=== PATIENT | male | born 1955 | race Caucasian/White ===

== ENCOUNTER 2016-09-30 13:59 | Inpatient (IN) ==
[2016-09-30] MEDS ORDERED: SODIUM CHLORIDE 0.9% INJ ONE (14:31)
[2016-09-30] MEDS ORDERED: PROTONIX IV ONE (14:31)
[2016-09-30 14:48] LABS: MANUAL DIFF NEEDED? NO
[2016-09-30 14:51] LABS: BASO% 0.1 % (0.0-0.8); EOS# 0.28 X1000 (0.0-0.7); EOS% 3.3 % (0.0-10.0); HEMATOCRIT 27.7 % (42.0-52.0); IMM GRAN# 0.03 X1000 (0.0-0.04); IMM GRAN% 0.4 % (0.0-0.5); LYMPH# 1.92 X1000 (1.2-3.4); LYMPH% 22.4 % (20.5-51.1); MCH 33.3 PG (27-31); MCHC 36.1 g/dL (33-37); MCV 92.3 FL (81-99); MONO# 0.81 X1000 (0.11-0.59); MONO% 9.5 % (1.7-9.3); MPV 12.8 FL (7.4-10.4); NEUT% 64.3 % (42.2-75.2); PLT 145 X1000 (130-400)
[2016-09-30 15:04] LABS: PTT 39.4 Seconds (22.0-36.0)
[2016-09-30 15:06] LABS: INR 2.5; PROTIME 27.8 Seconds (9.2-11.7)
[2016-09-30 15:15] LABS: AGAP 16; ALBUMIN 3.6 g/dL (3.5-5.0); ALKALINE PHOSPHATASE 44 U/L (32-122); BUN 27 mg/dL (8-22); CALCIUM 8.5 mg/dL (8.8-10.2); CHLORIDE 106 mmol/L (98-107); COSMO 287; GOT 56 U/L (10-34); POTASSIUM 4.1 mmol/L (3.5-5.1); SODIUM 141 mmol/L (136-145); TCO2 19 mmol/L (25-35); TOTAL BILIRUBIN 0.35 mg/dL (0.20-1.00)
[2016-09-30 15:24] LABS: GPT 61 U/L (10-44)
--- NOTE | 2016-09-30 15:49 | PROVIDER DOCUMENTATION ---
This chart was entered by Keysha Kenny Scribe, acting as scribe for Owen Amaya MD. HPI-Abdominal Pain/GI Problem - General Chief Complaint: GI Bleed Stated Complaint: ABD PAIN Time Seen by Provider: 09/30/16 14:15 Source: patient Allergies/Adverse Reactions: Patient Allergies Allergy/AdvReac Type Severity Reaction Status Date / Time No Known Allergies Allergy Verified 09/30/16 14:43 Home Medications: Home Medication List Medication Instructions Recorded Confirmed Last Taken Type Warfarin [Coumadin] 7.5 mg PO QHS 06/02/14 09/30/16 1 Day Ago History Carvedilol [Coreg] 6.25 mg PO BID 05/20/15 09/30/16 09/30/16 History Losartan [Cozaar] 100 mg PO DAILY 05/20/15 09/30/16 09/30/16 History Omeprazole [Prilosec] 40 mg PO DAILY PRN PRN 05/20/15 09/30/16 3 Days Ago History - History of Present Illness-ABD Nature of Presenting Problems: Pt is a 61 yom who came to the ED with a cc of black stool. Denies ирина blood nor n/v. Some RUQ abd pain. H/o gastritis and remote h/o EtOH abuse. Seen by Dr Epstein in the past. Abdominal Pain Onset Location: reports: RUQ Pain Radiation: reports: RLQ Quality of Pain: reports: aching Severity in ED: reports: mild Onset/Duration: reports: just prior to arrival Timing: reports: still present Last BM: this morning Dark Stools Present?: reports: black, tarry Bruising or Bleeding Gums?: No Similar Symptoms Previously?: No Recently seen or treated by another doctor?: No Review of Systems - Adult - REVIEW OF SYSTEMS - ADULT Constitutional: denies: chills, fever Eyes: reports: no symptoms reported Ears, Nose, Mouth & Throat: denies: epistaxis, mouth/dental pain Cardiovascular: reports: no symptoms reported Respiratory: denies: cough, shortness of breath Gastrointestinal: reports: abdominal pain, rectal bleeding (melena). denies: hematemesis, diarrhea, nausea, vomiting Genitourinary: denies: flank pain, hematuria Musculoskeletal: reports: no symptoms reported Integumentary: reports: no symptoms reported Neurological: reports: no symptoms reported Psychiatric: reports: no symptoms reported Endocrine: reports: no symptoms reported Hematologic/Lymphatic: reports: no symptoms reported Allergic/Immunologic: reports: no symptoms reported All Other Systems: Reviewed and Negative Past History - Adult - PAST MEDICAL HISTORY-ADULT Review of Records: reports: Nursing Assessment Review, Medications Reviewed Cardiovascular: reports: aortic disease (thoracic aneurysm repair), CAD, heart valve problem (aortic valve replacement) Gastrointestinal: reports: other (hiatal hernia) Neurological: reports: CVA Endocrine/Immune: reports: other (metabolic syndrome) - SOCIAL HISTORY Smoking: less than 1 pack/day Provider spent 3-5 mins advising pt. on dangers of tobacco.: Discussed manners to quit use, and f/u contacts for add'l counseling. Physical Exam-General - PHYSICAL EXAM-ADULT Initial Vital Signs Reviewed: Yes - CONSTITUTIONAL General Appearance: appears well, alert, no apparent distress - EYES Eyes: PERRL/EOMI, pink conjunctivae, fundi clear, no AV nicking - HEAD, EARS, NOSE, MOUTH & THROAT HENMT: normocephalic/atraumatic, moist mucous membranes, normal ENT inspection - NECK Neck: non-tender, full range of motion, supple - RESPIRATORY Respiratory: chest non-tender, lungs clear, normal breath sounds - CARDIOVASCULAR Cardiovascular: regular rate, rhythm, no edema, diastolic murmur, systolic murmur - GASTROINTESTINAL (ABDOMEN) Abdominal Exam: normal bowel sounds, non tender, soft, no organomegaly, no pulsatile mass. negative: guarding, rigid - LYMPHATIC Lymphatic: no adenopathy. negative: enlargement - MUSCULOSKELETAL Back Exam: normal inspection, no CVA tenderness, no vertebral tenderness Extremity: normal range of motion, non-tender - SKIN Integumentary: normal color, normal turgor, warm/dry - NEUROLOGIC Neurologic: grossly normal - PSYCHIATRIC Psych/Mental Status: normal mood/affect, oriented x 3 Progress - PLAN OF CARE/RESULTS Progress/Plan/Lab Results: Vital Signs - 8 hr 09/30/16 14:07 Temperature 97.9 F Pulse Rate 75 Respiratory Rate 18 Blood Pressure 101/53 O2 Sat by Pulse Oximetry 100 Result Diagrams: 09/30/16 14:30 09/30/16 14:30 - CONSULTS/PCP/HOSPITALIST Notification #1 *Consult/PCP/Hospitalist*: Gomez Time Discussed: 15:29 Consult Disposition: Admit #2 Consult: Lamar Departure - Departure Time of Disposition Decision: 13:30 DIAGNOSIS: Upper gastrointestinal bleed Disposition: ADMITTED INPATIENT 09 Certified Medical Emergency: Emergent Condition: Stable Referrals and Follow-Ups: Jose Sanchez MD [Primary Care Provider] - - Critical Care Note Total Time (mins): 30 Critical Care Statement: This patient required my direct personal management to treat or rule out processes, the absence of which, could potentiallly result in sudden, clinically significant life or limb threatening deterioration. This chart was documented by the indicated scribe, (Keysha Kenny Scribe) and accurately reflects the services I performed and decisions made by me, Owen Amaya MD, as attested by the provider's signature.
[2016-09-30] MEDS ORDERED: VITAMIN K 10 MG in NS 50 ML IV ONE (16:38)
[2016-09-30] MEDS ORDERED: PROTONIX 80 MG in NS 80 ML IV SCH (16:44)
[2016-09-30] MEDS ORDERED: NS 1,000 ML IV ONE (16:44)
[2016-09-30] MEDS ORDERED: ZOFRAN IV PRN (16:54)
--- NOTE | 2016-09-30 17:21 | HISTORY AND PHYSICAL ---
ADMITTING PHYSICIAN: Dr. Sanchez. CHIEF COMPLAINT: Black tarry stools. PRESENT ILLNESS: The patient is a 61-year-old white male who is on Coumadin for an aortic valve replacement in 1998. He also had aortic dissection that was repaired in 2013. He has had melenic stools in the past at least 1 time from a GI bleed. The patient has also had a stroke in the past when his blood got too thick by his quote and it caused some hot feeling to the left side of his body but apparently he had no paralysis from this. He has noticed the melenic stool for about 3 days but says that his significant other has breast cancer and she was sick and he felt like he had to stay with her and she got better today and he decided to come to the hospital. He said the last time this occurred he actually waited 6 days and he had to have a 6 pints of blood. He is supposed to be taking Prilosec daily but he says he takes a 2 or 3 times a week and he knows he should be taking it more regularly. He also smokes though he has been cutting down. He had been smoking a pack of cigarettes a day until the last week or so and he is down to 5 or 6 cigarettes a day. I sat and talked with him about cigarette cessation and the importance of getting off of tobacco for multiple reasons but it also helps him make more acid through stimulation from the tobacco. 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 This is Saturday and we have found that Dr. Luevano is covering here in the hospital this weekend. ALLERGIES: The patient has no known drug allergies. PAST SURGICAL HISTORY: He has had only the aortic aneurysm repair and valve replacement as surgeries . SOCIAL HISTORY: He gave up using alcohol about 8 years ago. He has no children. REVIEW OF SYSTEMS: Neurological: Denies headaches, seizures, visual problems, hearing problems. Pulmonary: Denies cough, wheezing, dyspnea. Cardiovascular: Denies heart palpitations, PND, orthopnea, chest pain. He says he takes a medication for his heart palpitations. GI: Denies nausea, vomiting. Did have a have a little right midabdominal pain earlier but he says it does not hurt now, has not noticed melenic stools. : No difficulty with urination. Endocrine: No diabetes, thyroid disease or pituitary disease. OBJECTIVE: Vital signs: Temperature is 97.9 degrees Fahrenheit, pulse rate 75, respirations 18, blood pressure 101/53, O2 saturation is 100%. I had a. HEENT: Normocephalic. EOMs intact. PERRLA. Throat clear. Neck: Supple without thyromegaly, lymphadenopathy, or carotid bruits. Lungs: Are clear auscultation and percussion without rhonchi, rales, or wheezes. Heart: Regular rate and rhythm without murmurs, gallops, or friction rubs. I can't hear his mechanical aortic valve. Abdomen: Soft. Active bowel sounds. No organomegaly or tenderness. Neurologic: Cranial nerves 2-12 intact grossly. Sensory, motor intact. Reflexes 1+ all. Lymphatic: Lymph nodes are nonpalpable in the cervical, supraclavicular, axillary and inguinal areas. General: He is an overweight 61-year-old white male in no apparent distress at this time. LABORATORY: Hemoglobin is 10.0, hematocrit 27.7, white count is 8560. Pro time is 27.8, INR is 2.5, PTT is 39.4. Sodium 141, potassium 4.1. AST slightly elevated at 56, ALT slightly elevated at 61. Rest of chemistries are essentially normal. ADMITTING DIAGNOSES: 1. Gastrointestinal bleed. 2. On Coumadin. 3. Aortic valve replacement mechanical. 4. History of aortic aneurysm with repair. This apparently was an ascending aortic aneurysm. Also has had hypertension and he thinks he is on losartan and on Coreg but he could not tell me for sure the dosages and will try to find those out. PLAN: Will admit to the ICU. Have consulted GI . Please see orders. cc: MD Jose Molina Jr, MD
[2016-09-30] MEDS: PROTONIX 80 MG in NS 80 ML IV SCH (18:12)
[2016-09-30] MEDS: NS 1,000 ML IV SCH (18:12)
[2016-09-30] MEDS: CARAFATE LIQUID PO SCH ×3 (18:13→21:47)
--- NOTE | 2016-09-30 18:29 | CONSULTATION ---
DATE OF CONSULTATION: 09/30/2016 REQUESTING PHYSICIAN: Jose Sanchez MD PRIMARY DOCTOR: Jose Sanchez MD REASON FOR CONSULTATION: Melena. HIS ILLNESS: Mr. Miller is a 61-year-old male, who was admitted through the ER today for melena. According the patient, he had headaches for the last 3 weeks and had been using BC powders every other day for 2 weeks. He stopped 1 week ago. After using BC powders, he has complained of epigastric pain and burning. He has not been compliant with his Prilosec. He only takes it as needed and he almost takes is like sometimes once every week or less than that. He had a bleeding ulcer in 2011 which was cauterized. He has been on Coumadin for history of aortic valve replacement in 2001. His INR was 2.5 on admission. The patient has been noticing melena for the last 3 days. His admission hemoglobin and hematocrit today was 10 and 27.7. He denies any vomiting blood. He does complain of discomfort in epigastric region. PAST MEDICAL HISTORY: 1. Aortic stenosis, required aortic valve replacement St. Jae in 2001, on chronic Coumadin. 2. History of gastric ulcer in the past. 3. Chronic smoker, noncompliant. 4. Reflux disease. 5. Hypertension. 6. Pneumonia. 7. Hyperlipidemia. 8. Ascending Aortic Dissection in s/p repair at [facility]. PAST SURGICAL HISTORY: Aortic valve replacement St. Jae in 2001. EGD 2011. Aortic Dissection repair at [facility] in SOCIAL HISTORY: He is on disability and is unemployed. He smokes half pack a day for many years. He quit alcohol about 30 years ago. He denies any illicit drugs. FAMILY HISTORY: Father had a heart attack and mother of pneumonia. REVIEW OF SYSTEMS: Denies any current fevers, rigors, chills, chest pain, shortness of breath, dyspnea at rest. Denies any genitourinary complaints or neurologic complaints. Denies history on nausea, vomiting or vomiting blood. Does complain of mild epigastric discomfort and burning type and does complain of melena for the last 3 days. ALLERGIES: No known drug allergies. MEDICATIONS AT HOME: Coumadin 7.5 mg p.o. at bedtime. Losartan 100 mg once daily. Omeprazole 40 mg as needed. Coreg 6.25 mg p.o. b.i.d. BC powders as needed. MEDICATIONS IN THE HOSPITAL: Protonix drip. Carafate 1 g every 6 hours. He is on clear liquid diet and on vitamin K 10 mg IV once and fluids at 100 mL/hour. PHYSICAL EXAMINATION: Vital Signs: Temperature 98 degrees, pulse rate 64, respiratory rate 16, blood pressure of 95/52, saturating 97% on room air. Body weight of 185 pounds , BMI of 31.8 kg. General Appearance: Moderately built, moderately nourished, lying in bed, in no acute distress. HEENT: Pale conjunctivae, no icterus. Pupils equal, react to light. Neck: Supple. Chest: Decreased. Cardiovascular: Regular rhythm. No murmur. Abdomen: Mild discomfort in epigastric region. No rebound, no guarding. Bowel sounds are present. No hepatosplenomegaly. Extremities: No cyanosis, clubbing or edema. Neurologic: Alert, awake, oriented. LABORATORY: Hemoglobin and hematocrit 10 and 27.7, white count 8.5, platelet count of 144,000, MCV 92.3. INR of 2.5, PT of 27.8, PTT of 39.4, sodium 141, potassium 4.1, chloride 106, bicarb 19, anion gap of 16, BUN of 27, creatinine 0.9, glucose of 111, calcium 8.5, total bilirubin is 0.35, AST 56, ALT 61, alkaline phosphatase 44, total protein 6, albumin of 3.6. IMPRESSION AND PLAN: 1. Melena and history of use of BC powders for headaches. Quit 1 week ago. 2. History of noncompliance. Not taking his proton pump inhibitors at home. 3. History of reflux disease. 4. History of gastric ulcer, last one in 2011 which was cauterized. 5. History of aortic valve replacement 2001 for aortic stenosis, on chronic Coumadin. 6. History of aortic dissection involving the ascending thoracic aorta and aortic arch. 7. Chronic smoker. 8. Elevated liver enzymes. 9. Mild obesity, body mass index 31.8. RECOMMENDATIONS: 1. Continue to be nothing per oral. We will check serial hemoglobin and hematocrit every 4-6 hours and type and cross, transfuse to keep hematocrit within 27%. We will reverse international normalized ratio with vitamin K we will keep him on Protonix drip and Carafate. We will check PT PTT, INR in the morning. We will schedule esophagogastroduodenoscopy in the morning if international normalized ratio is less than 1.5. May give FFPs if needed. Will consult Cardiology to help with Coumadin management because of complicated cardiac history. 2. We will check acute hepatitis panel and ultrasound of the abdomen. 3. The patient was counseled to avoid use of nonsteroidal antiinflammatory drugs completely. Patient was also counseled to quit smoking completely. The patient was counseled to improve the compliance with his medications. Patient failed to follow up with us as an outpatient after prior endoscopy 5 years ago. I discussed the risks benefits indications and alternatives for esophagogastroduodenoscopy with the patient and he acknowledges and agrees to proceed with the procedure. 4. The above plan of care discussed with the patient and all questions answered. cc: MD Jose Chopra MD MTDD
[2016-10-01] MEDS: NS 1,000 ML IV SCH ×3 (04:20→22:02)
[2016-10-01] MEDS: CARAFATE LIQUID PO SCH ×4 (04:20→22:00)
[2016-10-01] MEDS: PROTONIX 80 MG in NS 80 ML IV SCH ×3 (04:20→22:01)
[2016-10-01 04:55] LABS: MANUAL DIFF NEEDED? NO
[2016-10-01 05:01] LABS: BASO% 0.1 % (0.0-0.8); EOS# 0.24 X1000 (0.0-0.7); EOS% 3.4 % (0.0-10.0); HEMATOCRIT 26.8 % (42.0-52.0); HEMOGLOBIN 9.4 g/dL (14.0-18.0); IMM GRAN# 0.05 X1000 (0.0-0.04); IMM GRAN% 0.7 % (0.0-0.5); LYMPH% 26.6 % (20.5-51.1); MCH 32.9 PG (27-31); MCHC 35.1 g/dL (33-37); MCV 93.7 FL (81-99); MONO# 0.67 X1000 (0.11-0.59); MONO% 9.4 % (1.7-9.3); MPV 12.3 FL (7.4-10.4); NEUT% 59.8 % (42.2-75.2); PLT 116 X1000 (130-400); RBC 2.86 XMIL (4.7-6.1)
[2016-10-01 05:04] LABS: PTT 30.2 Seconds (22.0-36.0)
[2016-10-01 05:06] LABS: INR 1.37; PROTIME 14.7 Seconds (9.2-11.7)
[2016-10-01 05:21] LABS: AGAP 12; ALBUMIN 3.3 g/dL (3.5-5.0); ALKALINE PHOSPHATASE 39 U/L (32-122); BUN 21 mg/dL (8-22); CALCIUM 8.1 mg/dL (8.8-10.2); CHLORIDE 110 mmol/L (98-107); COSMO 289; GOT 43 U/L (10-34); GPT 51 U/L (10-44); SODIUM 144 mmol/L (136-145); TCO2 22 mmol/L (25-35); TOTAL BILIRUBIN 0.61 mg/dL (0.20-1.00); TOTAL PROTEIN 5.5 g/dL (6.3-8.3)
--- NOTE | 2016-10-01 05:37 | EKG Report ---
Test Performed on : 09/30/2016 5:09:56 PM Test Reason : afib Blood Pressure : / mmHG Vent. Rate : 064 BPM Atrial Rate : 064 BPM P-R Int : 000 ms QRS Dur : 096 ms QT Int : 454 ms P-R-T Axes : 000 049 126 degrees QTc Int : 468 ms Sinus rhythm. with Mobitz I (Wenckebach) block Nonspecific T wave abnormality Prolonged QT Abnormal ECG When compared with ECG of 20-MAY-2015 19:36, T wave inversion no longer evident in Lateral leads Confirmed by Salbador SRINIVASAN, Marcelo Pitt ([id number]) on 10/01/2016 9:04:50 AM
--- NOTE | 2016-10-01 07:26 | PROGRESS NOTE ---
DATE: 10/01/2016 SUBJECTIVE: Mr. Miller is doing fair. The patient is admitted with melena, mild abdominal discomfort, no high-grade fever or chills. The patient had history of GI bleed in the past. He was taking BC powder for headache. No nausea, no hematemesis. No blood in the urine or hemoptysis. The patient does have prosthetic heart valve on Coumadin. His Coumadin is on hold. We requested cardiology consult to help us manage anticoagulation with prosthetic heart valve. He denied any headache. No typical chest pain or palpitations. PAST MEDICAL HISTORY: 1. Prosthetic heart valve. 2. Hypertension. 3. Gastritis. 4. Dissecting aortic aneurysm. 5. Situational depression. 6. Hyperlipidemia. PHYSICAL EXAMINATION: Vital: Admission history physical and GI consult reviewed. Vital signs noted. Neck: Supple. No JVD. Lungs: Bibasilar crepitations. Heart: Metallic heart sound, 2/6 systolic murmur at the apex. Abdomen: Soft, globular. Bowel sounds present. Extremities: No cyanosis, clubbing. No acute DVT. Central Nervous System: Alert, awake, able to move all 4 limbs. LAB DATA: Done this morning. Last blood work hemoglobin 9.4, hematocrit 26.8. Platelet count 116,000. PT/INR 1.37, electrolytes BUN was 21 creatinine 0.8. CONSIDERATION: 1. Gastrointestinal bleed most likely upper GI. Patient is scheduled to have upper GI endoscope today. 2. Prosthetic heart valve. 3. Hypertension. 4. Gastritis. 5. Reflux disease. 6. Hyperlipidemia. Encouraged patient to quit smoking. 7. Avoid anti inflammatory medication. We already requested cardiology consult. Continue rest of the treatment. After reviewing the results, will make necessary recommendations. cc: Jose Sanchez MD
[2016-10-01] MEDS: COZAAR PO SCH (10:16)
[2016-10-01] MEDS: COREG PO SCH ×2 (10:16→20:35)
[2016-10-01 10:25] LABS: HEPATITIS PROFILE ACUTE SEE COMMENTS
[2016-10-01] MEDS ORDERED: DIPRIVAN 1% ONE (12:12)
--- NOTE | 2016-10-01 12:51 | CONSULTATION ---
DATE OF CONSULTATION: 10/01/2016 IMPRESSION: 1. Recent gastrointestinal bleed requiring transfusion in a setting of long-term anticoagulation for aortic valve replacement. 2. Status post aortic valve replacement with St. Jae prosthesis (27 mm) for aortic stenosis in 1998 presumably for bicuspid valve. 3. Status post repair of aortic dissection involving ascending thoracic aorta and aortic arch in 03/2014 at [facility]. 4. Status post previous cerebrovascular accident. 5. Hypertension. 6. History of previous gastrointestinal bleeding in 2011. 7. Hepatitis C carrier. 8. Chronic cigarette use, ongoing. RECOMMENDATIONS: 1. Will assist with management of anticoagulation. Would like to resume anticoagulation as soon as permissible from GI standpoint. 2. Smoking cessation strongly advised. 3. The patient advised to avoid aspirin-containing products and continue medications for peptic ulcer disease/gastroesophageal reflux such as Prilosec. HISTORY: This 61-year-old, white male, with past history of previous mechanical aortic valve replacement in 1998 (St. Aje prosthesis, 27 mm) for aortic stenosis, aortic dissection repair in 2013, hypertension, previous GI bleed, cerebrovascular accident, and gastroesophageal reflux, was admitted with several day history of melena. He was found to have significant anemia with hematocrit of 27. He has received vitamin K and transfusion of packed red blood cells. He denies any chest pain or dyspnea. He has been taking aspirin-containing products (BC powders) lately for recurrent headaches and is not taking Prilosec as prescribed. PAST MEDICAL HISTORY: 1. Status post aortic valve replacement with [address] Jae prosthesis in 1989 for aortic stenosis, presumably bicuspid aortic valve. 2. Status post aortic dissection repair in 2013 for dissection involving ascending aorta and aortic arch. 3. Hypertension. 4. Status post previous cerebrovascular accident with brain imaging studies reported demonstrating an old infarct at posterior right frontal lobe. 5. History of previous GI bleeding in 03/2012. 6. Gastroesophageal reflux and hiatal hernia. 7. Hepatitis C carrier. 8. Reported history of paroxysmal atrial fibrillation. 9. Hypertension. ALLERGIES: He has no known drug allergies. MEDICATIONS: Prior to admission as listed. SOCIAL HISTORY: He quit consuming alcohol 8 years ago. He was smoking 1 pack of cigarettes a day about 6 weeks ago and, in the last few weeks, has cut down to maybe 5 cigarettes a day. FAMILY HISTORY: Negative for premature coronary disease. REVIEW OF SYSTEMS: Pulmonary: Negative. Gastrointestinal: Noteworthy for melena and gastroesophageal reflux. Constitutional: Negative. Remainder review of systems negative/noncontributory. 14- total systems reviewed. PHYSICAL EXAMINATION: An older middle-aged male in no distress. Vital signs as recorded are stable. HEENT: Extraocular movements intact. Mucous membranes moist. Neck is supple without JV distention. There are no carotid bruits. Chest is clear to auscultation. Cardiac exam reveals an irregular rate and rhythm. There is a grade 1-2/6 systolic murmur at the left sternal border and right upper sternal border. First heart sound normal. Weld mechanical 2nd heart sound demonstrated. Abdomen soft, nontender. Bowel sounds are normal. Extremities without edema. Neurologic: He is alert and fully oriented. Speech is fluent. He moves all 4 extremities equally well. Skin is warm and dry. Psychiatric exam reveals mood to be appropriate. ECG demonstrates sinus rhythm and Mobitz 1. Second-degree AV block (Wenckebach). cc: MD Jose Nelson MD
[2016-10-01 12:57] LABS: MANUAL DIFF NEEDED? NO
[2016-10-01 13:10] LABS: BASO% 0.1 % (0.0-0.8); EOS# 0.22 X1000 (0.0-0.7); EOS% 3.1 % (0.0-10.0); HEMATOCRIT 31.6 % (42.0-52.0); HEMOGLOBIN 11.1 g/dL (14.0-18.0); IMM GRAN# 0.03 X1000 (0.0-0.04); IMM GRAN% 0.4 % (0.0-0.5); LYMPH# 1.26 X1000 (1.2-3.4); LYMPH% 17.9 % (20.5-51.1); MCH 31.9 PG (27-31); MCHC 35.1 g/dL (33-37); MCV 90.8 FL (81-99); MONO# 0.53 X1000 (0.11-0.59); MONO% 7.5 % (1.7-9.3); MPV 12.8 FL (7.4-10.4); PLT 117 X1000 (130-400); RBC 3.48 XMIL (4.7-6.1)
[2016-10-01] MEDS ORDERED: EXTENSION SET 32 IN 4522 ONE (13:56)
[2016-10-01] MEDS ORDERED: LR 1,000 ML ONE (13:56)
[2016-10-01] MEDS ORDERED: ANESTHESIA PB SET 88 IN 5742 ONE (13:56)
[2016-10-01 15:33] LABS: MANUAL DIFF NEEDED? NO
[2016-10-01 15:40] LABS: BASO% 0.1 % (0.0-0.8); EOS% 2.5 % (0.0-10.0); HEMATOCRIT 30.6 % (42.0-52.0); HEMOGLOBIN 10.9 g/dL (14.0-18.0); IMM GRAN# 0.04 X1000 (0.0-0.04); IMM GRAN% 0.5 % (0.0-0.5); LYMPH# 1.46 X1000 (1.2-3.4); LYMPH% 18.5 % (20.5-51.1); MCH 32.2 PG (27-31); MCHC 35.6 g/dL (33-37); MCV 90.5 FL (81-99); MONO# 0.75 X1000 (0.11-0.59); MONO% 9.5 % (1.7-9.3); MPV 12.1 FL (7.4-10.4); NEUT% 68.9 % (42.2-75.2); PLT 110 X1000 (130-400); RBC 3.38 XMIL (4.7-6.1)
--- NOTE | 2016-10-01 17:21 | Diag Imaging Result Document ---
PROCEDURE NAME: US ABDOMEN-COMPLETE - 10/01/2016 COMPARISON: CT from 03/23/2014. FINDINGS: There are several very small gallstones in the gallbladder which were present on prior exams. The liver is mildly fatty. The pancreas, spleen, and both kidneys are normal. The common bile duct measures 5 mm. Aorta, IVC, and main portal vein are patent. IMPRESSION: 1. Cholelithiasis. 2. Hepatic steatosis.
[2016-10-01 20:08] LABS: MANUAL DIFF NEEDED? NO
[2016-10-01 20:13] LABS: BASO% 0.1 % (0.0-0.8); EOS# 0.21 X1000 (0.0-0.7); HEMATOCRIT 30.7 % (42.0-52.0); HEMOGLOBIN 10.6 g/dL (14.0-18.0); IMM GRAN# 0.03 X1000 (0.0-0.04); IMM GRAN% 0.4 % (0.0-0.5); LYMPH# 1.66 X1000 (1.2-3.4); LYMPH% 23.5 % (20.5-51.1); MCH 31.4 PG (27-31); MCHC 34.5 g/dL (33-37); MCV 90.8 FL (81-99); MONO% 7.1 % (1.7-9.3); MPV 12.2 FL (7.4-10.4); NEUT% 65.9 % (42.2-75.2); PLT 119 X1000 (130-400); RBC 3.38 XMIL (4.7-6.1)
--- NOTE | 2016-10-01 20:22 | OPERATIVE NOTE ---
PROCEDURE DATE: 10/01/2016 REFERRING PHYSICIAN: Jose Sanchez MD PRIMARY CARE DOCTOR: Jose Sanchez MD TITLE OF PROCEDURE: Esophagogastroduodenoscopy with hemostasis. PREOPERATIVE DIAGNOSES: 1. Melena going over the last 3 days. Admitted with hemoglobin and hematocrit of 27%. 2. History of aortic valve replacement in 1998 in [place], on chronic Coumadin. Admission international normalized ratio of 2.5. 3. History of previous gastric ulcer in 2011, status post cautery at that time. 4. History of chronic smoking. 5. History of aortic dissection in the ascending aorta and status post repair at [facility] on 08/05/2013. 6. History of use of nonsteroidal antiinflammatory drugs like Goody Powders and BC powders off and on for headaches for the last 2 weeks. Has quit one week ago. 7. History of noncompliance, not taking his proton pump inhibitors as directed. 8. Positive Hepatitis C antibody-elevated liver enzymes- HCV PCR pending. POSTOPERATIVE DIAGNOSIS: 1. Normal esophagus. 2. Z-line visualized at 36 cm. 3. Sliding hiatal hernia 4 cm. 4. Evidence of ulcer in the gastric body measuring about 6-8 mm treated with hemoclip successfully. 5. Normal fundus, cardia, incisura. 6. Evidence of erosive gastritis in the body and antrum. 7. Duodenitis in the duodenal bulb. 8. Normal 2nd portion duodenum. ESTIMATED BLOOD LOSS: Minimal. COMPLICATIONS: None. ANESTHESIA: Monitored anesthesia care. SPECIMEN: None. DETAILS OF OPERATION: After informed consent, the patient was explained the risks, benefits, indications, alternatives of the procedure. The patient was prepared for EGD. The risks of the procedure, including infection, bleeding, pain, trauma to the surrounding structures, perforation and were explained to the patient, among others. He acknowledged this and agreed to proceed with procedure. The patient was brought to the OR. He was turned in the left lateral position. A bite block was placed in the patient's mouth. After adequate monitored anesthesia care, the upper endoscope was gently introduced through the oral vestibule and advanced into the 2nd portion of the duodenum. The esophagus was normal in the proximal and middle 3rd. Middle 3rd of the distal esophagus showed evidence of Z-line at 36 cm. There was evidence of 4 cm sliding hiatal hernia. There was evidence of gastritis in the body and antrum, erosive type. There was evidence of an ulcer in the gastric antrum measuring about 6-8 mm. This was treated with a hemoclip successfully. Retroflexion in the stomach revealed normal fundus, cardia, incisura. The duodenal bulb showed evidence of erythema suggesting duodenitis. The second portion of the duodenum appeared normal. There was no evidence of any fresh or old blood throughout entire EGD. The air was withdrawn. The patient tolerated the procedure well and is currently being monitored in the OR in stable condition. I discussed the findings with the patient upon waking and all questions were answered. RECOMMENDATIONS: 1. The patient will be on Protonix drip for 72 hours and then transition to Protonix twice daily for 3 months and then weaned down to once daily for another 3 months. After that he can be on Zantac 150 mg p.o. b.i.d. 2. The patient was counseled to quit smoking. 3. The patient was also counseled to avoid any use of nonsteroidal antiinflammatory drugs, like Goody Powders and BC powders completely. 4. The patient will be staying on reflux lifestyle changes. Avoid excessive tea , coffee, soda, tomatoes, onions, spicy foods. The patient has a high risk of recurrent bleeding as he is on Coumadin for aortic valve replacement. Once his hematocrit stabilizes, patient can be resumed back on his anticoagulation per the primary care team. 5. We will keep him on Carafate 1 g 6 hours for 6 weeks. We will keep him on Iron C b.i.d. for 3 months, then Centrum Silver once daily for 3 months. 6. Above plan of care discussed with the patient and all questions were answered. cc: MD Jose Chopra MD MTDD
[2016-10-01] MEDS: ICAR-C PO SCH (20:35)
[2016-10-01 23:14] LABS: MANUAL DIFF NEEDED? NO
[2016-10-01 23:16] LABS: BASO% 0.1 % (0.0-0.8); EOS# 0.19 X1000 (0.0-0.7); EOS% 2.8 % (0.0-10.0); HEMATOCRIT 29.5 % (42.0-52.0); HEMOGLOBIN 10.3 g/dL (14.0-18.0); IMM GRAN# 0.04 X1000 (0.0-0.04); IMM GRAN% 0.6 % (0.0-0.5); LYMPH# 1.67 X1000 (1.2-3.4); LYMPH% 24.6 % (20.5-51.1); MCH 31.7 PG (27-31); MCHC 34.9 g/dL (33-37); MCV 90.8 FL (81-99); MONO# 0.64 X1000 (0.11-0.59); MONO% 9.4 % (1.7-9.3); MPV 12.2 FL (7.4-10.4); NEUT% 62.5 % (42.2-75.2); PLT 115 X1000 (130-400); RBC 3.25 XMIL (4.7-6.1)
[2016-10-02 06:10] LABS: MANUAL DIFF NEEDED? NO
[2016-10-02] MEDS: CARAFATE LIQUID PO SCH ×4 (06:16→21:46)
[2016-10-02 06:19] LABS: BASO% 0.1 % (0.0-0.8); EOS# 0.22 X1000 (0.0-0.7); EOS% 3.1 % (0.0-10.0); HEMATOCRIT 30.1 % (42.0-52.0); HEMOGLOBIN 10.4 g/dL (14.0-18.0); IMM GRAN# 0.03 X1000 (0.0-0.04); IMM GRAN% 0.4 % (0.0-0.5); LYMPH# 1.33 X1000 (1.2-3.4); LYMPH% 18.5 % (20.5-51.1); MCH 31.5 PG (27-31); MCHC 34.6 g/dL (33-37); MCV 91.2 FL (81-99); MONO# 0.66 X1000 (0.11-0.59); MONO% 9.2 % (1.7-9.3); MPV 12.6 FL (7.4-10.4); NEUT% 68.7 % (42.2-75.2); PLT 125 X1000 (130-400)
--- NOTE | 2016-10-02 06:23 | EKG Report ---
Test Performed on : 10/02/2016 05:51:55 AM Test Reason : dyspnea Blood Pressure : / mmHG Vent. Rate : 071 BPM Atrial Rate : 122 BPM P-R Int : 000 ms QRS Dur : 098 ms QT Int : 468 ms P-R-T Axes : 263 042 043 degrees QTc Int : 508 ms Unusual P axis, possible ectopic atrial tachycardia. with 2nd degree AV block (Mobitz I). Low voltage QRS Nonspecific T wave abnormality Prolonged QT Abnormal ECG When compared with ECG of 30-SEP-2016 17:09, Ectopic atrial rhythm. has replaced Sinus rhythm. Confirmed by Salbador SRINIVASAN, Marcelo Pitt ([id number]) on 10/03/2016 5:40:33 PM
[2016-10-02 06:29] LABS: INR 1.05; PROTIME 11.1 Seconds (9.2-11.7)
[2016-10-02 06:34] LABS: AGAP 12; ALBUMIN 3.4 g/dL (3.5-5.0); ALKALINE PHOSPHATASE 40 U/L (32-122); BUN 17 mg/dL (8-22); CHLORIDE 110 mmol/L (98-107); COSMO 286; GOT 49 U/L (10-34); GPT 52 U/L (10-44); MAGNESIUM 1.9 mg/dL (1.5-2.7); POTASSIUM 3.6 mmol/L (3.5-5.1); SODIUM 143 mmol/L (136-145); TCO2 21 mmol/L (25-35); TOTAL BILIRUBIN 0.72 mg/dL (0.20-1.00); TOTAL PROTEIN 5.6 g/dL (6.3-8.3)
[2016-10-02] MEDS: COZAAR PO SCH (08:27)
[2016-10-02] MEDS: ICAR-C PO SCH ×2 (08:27→20:03)
[2016-10-02] MEDS: NS 1,000 ML IV SCH ×2 (08:27→17:41)
[2016-10-02] MEDS: LOVENOX SUBQ SCH ×2 (08:27→20:03)
[2016-10-02] MEDS: PROTONIX 80 MG in NS 80 ML IV SCH ×2 (08:27→17:41)
[2016-10-02] MEDS: COREG PO SCH ×2 (08:27→20:03)
[2016-10-02] MEDS: CENTRUM SILVER PO SCH (08:27)
--- NOTE | 2016-10-02 11:06 | PROGRESS NOTE ---
DATE: 10/02/2016 SUBJECTIVE: Mr. Miller is doing better. He tolerated food well. No nausea, vomiting. Denied any chest pain. No bleeding per rectum. Denied being dizzy or lightheaded. The patient is very eager to go home. The patient is dressed up, insisting upon going home. The patient does have a prosthetic heart valve, high risk for CVA. OBJECTIVE: Vital signs: Noted. Neck: Supple. No JVD. Lungs: Bilateral good air entry present. CVS: S1 and S2 heard. Metallic heart sounds. Abdomen: Soft, globular. Bowel sounds present. Extremities: No cyanosis, clubbing. No acute DVT. PROFESSOR OF GENETICS: Alert, awake. Able to move all 4 limbs. LAB DATA: PT/INR 1.05. Electrolytes were fairly benign. AST 49, ALT was 52. Potassium was 3.6, hemoglobin 10.4, hematocrit 30.1. Hepatitis panel, hepatitis C was positive. ASSESSMENT: The patient problems include: 1. Gastrointestinal bleed. The patient does have gastric ulcer which was bleeding and duodenitis. 2. Hepatitis C. 3. Prosthetic heart valve. 4. Hypertension. 5. Hyperlipidemia. PLAN: I am going to start him on Lovenox. Continue Carafate. Will give him Prilosec. Resume Coumadin. Patient is on a full liquid diet. Will advance diet to GI soft diet as per financial planning consultant. I do not think the patient is ready to go home yet. Will get a GI and cardiology evaluation. After reviewing their evaluation, will make necessary recommendations. cc: Jose Sanchez MD
--- NOTE | 2016-10-02 11:18 | PROGRESS NOTE ---
DATE: 10/02/2016 SUBJECTIVE: The patient continues without chest discomfort or shortness of breath. Upper GI study reports gastric ulcer. OBJECTIVE: Vital signs: Blood pressure 153/81, heart rate 75. ECG monitor shows sinus rhythm with premature supraventricular complexes. Chest: Clear to auscultation Cardiac: Exam reveals a regular rate and rhythm with grade 1 to 2/6 systolic murmur at the right upper sternal border. [place] mechanical 2nd heart sound is demonstrated. There is no evidence of peripheral edema. LAB DATA: Includes hematocrit of 30.1 and INR 1.05. IMPRESSIONS: 1. Recent gastrointestinal bleed related to gastric ulcer. 2. Status post aortic valve replacement with St. Jae prosthesis for aortic stenosis in 1998, status post repair of aortic dissection involving ascending thoracic aorta and aortic arch in 2013. 3. Previous cerebrovascular accident. 4. Hypertension. 5. Previous gastrointestinal bleed in 2011. 6. Chronic cigarette use, ongoing. RECOMMENDATIONS: Lovenox resumed. If well tolerated would resume anticoagulation with warfarin as soon as reasonable from a GI standpoint. cc: MD Jose Nelson MD
[2016-10-03] MEDS ORDERED: TEARISOL OPH SOLUTION BOTH EYES PRN (01:11)
[2016-10-03] MEDS: PROTONIX 80 MG in NS 80 ML IV SCH ×2 (03:55→15:08)
[2016-10-03] MEDS: NS 1,000 ML IV SCH ×2 (03:55→16:22)
[2016-10-03] MEDS: CARAFATE LIQUID PO SCH ×4 (03:55→21:55)
[2016-10-03 05:28] LABS: MANUAL DIFF NEEDED? NO
[2016-10-03 06:20] LABS: AGAP 11; ALBUMIN 3.1 g/dL (3.5-5.0); ALKALINE PHOSPHATASE 40 U/L (32-122); BUN 18 mg/dL (8-22); CALCIUM 8.6 mg/dL (8.8-10.2); CHLORIDE 108 mmol/L (98-107); COSMO 280; GOT 59 U/L (10-34); GPT 58 U/L (10-44); POTASSIUM 3.9 mmol/L (3.5-5.1); SODIUM 140 mmol/L (136-145); TCO2 21 mmol/L (25-35); TOTAL BILIRUBIN 0.47 mg/dL (0.20-1.00); TOTAL PROTEIN 5.2 g/dL (6.3-8.3)
[2016-10-03 06:41] LABS: BASO% 0.3 % (0.0-0.8); EOS# 0.19 X1000 (0.0-0.7); EOS% 2.9 % (0.0-10.0); HEMATOCRIT 26.3 % (42.0-52.0); HEMOGLOBIN 9.2 g/dL (14.0-18.0); IMM GRAN# 0.06 X1000 (0.0-0.04); IMM GRAN% 0.9 % (0.0-0.5); LYMPH# 1.73 X1000 (1.2-3.4); LYMPH% 26.3 % (20.5-51.1); MCH 32.3 PG (27-31); MCV 92.3 FL (81-99); MONO% 10.6 % (1.7-9.3); PLT 78 X1000 (130-400); RBC 2.85 XMIL (4.7-6.1)
--- NOTE | 2016-10-03 07:30 | PROGRESS NOTE ---
DATE: 10/03/2016 SUBJECTIVE: Mr. Miller is doing fair. The patient did not have any bowel movement. Yesterday one time the patient got a little lightheaded. Other times he did fairly well. He denied any nausea or vomiting. No chest pain. No dysuria or hematuria. No high-grade fever or chills. No hematemesis or melena. No hypotension. OBJECTIVE: Vital signs: Reviewed. Neck: Supple. No JVD. Lungs: Bilateral good air entry present. Occasional wheezing. CVS: S1 and S2 heard. Metallic heart sounds. Abdomen: Soft, globular. Bowel sounds present. Extremities: No cyanosis, clubbing. No acute DVT. SENIOR NET ARCHITECT: Alert, awake. Able to move all 4 limbs. LAB DATA: Done today, hemoglobin 9.2, hematocrit 26.3, platelet count was 78,000 which did drop. Patient is on Lovenox, started yesterday. The patient's electrolytes are fairly benign. CONSIDERATIONS: 1. Gastrointestinal bleed, bleeding gastric ulcer. Hemoglobin and hematocrit dropped. 2. Prosthetic heart valve. 3. Hypertension. 4. Hyperlipidemia. PLAN: Will continue close observation. The patient is going to receive 2 units of packed RBCs as recommended by drum tester. I am going to continue monitoring the patient in the unit. cc: Jose Sanchez MD
[2016-10-03] MEDS: COREG PO SCH ×2 (08:01→20:14)
[2016-10-03] MEDS: COZAAR PO SCH (08:01)
[2016-10-03] MEDS: LOVENOX SUBQ SCH ×2 (08:01→20:14)
[2016-10-03] MEDS: ICAR-C PO SCH ×2 (08:01→20:14)
[2016-10-03] MEDS: CENTRUM SILVER PO SCH (08:01)
--- NOTE | 2016-10-03 10:04 | PROGRESS NOTE ---
DATE: 10/03/2016 SUBJECTIVE: The patient continues without chest discomfort or dyspnea. He is currently on Lovenox 1 mg/kg subcutaneous q. 12 hours. OBJECTIVE: Vital Signs: Blood pressure 173/84, heart rate 78 and regular with ECG monitor showing sinus rhythm with frequent premature supraventricular complexes. Neck: There is no significant jugular venous distention. Chest: Clear to auscultation. Cardiac exam: Regular rate and rhythm with frequent extrasystole and grade 2/6 systolic murmur at the left sternal border, right upper sternal border with a crisp mechanical second heart sound. Extremities: There is no evidence of peripheral edema. LAB DATA: Lab data includes hematocrit 26.3. INR yesterday 1.05. IMPRESSION: 1. Recent gastrointestinal bleed related to gastric ulcer. 2. Status post aortic valve replacement with St. Jae prosthesis for aortic stenosis 1998. Patient is status post repair of aortic dissection involving ascending thoracic aorta and aortic arch in 2013. 3. Previous cerebrovascular accident. 4. Hypertension. 5. Previous gastrointestinal bleed in 2011. 6. Chronic cigarette use. RECOMMENDATIONS: 1. Continue Lovenox 1 mg/kg subcutaneous q. 12 hours as tolerated. 2. Resume anticoagulation with warfarin when felt permissible from gastroenterology standpoint. cc: MD Jose Nelson MD
--- NOTE | 2016-10-03 15:18 | PROGRESS NOTE ---
DATE: 10/03/2016 SUBJECTIVE: Patient is resting in bed. He had 1 bowel minutes yesterday which was dark in color. The patient denies any abdominal pain, nausea, vomiting. He does feel bloated. He is on a full liquid diet for now. He denies any fevers, rigors, chills. OBJECTIVE: Vital signs: Temperature of 98.4 degrees, pulse rate of 70, respiratory rate 16, blood pressure 129/68, saturating 94% on room air. General Appearance: Moderately built, moderately nourished, lying in bed, in no acute distress. HEENT: Pale conjunctivae. No icterus. Pupils equal, react to light. Neck: Supple. Abdomen: Soft, nontender, nondistended. Bowel sounds noted. No rebound. Extremities: No cyanosis, clubbing, edema. Neurologic: He is alert, awake, oriented. LABS: Hemoglobin and hematocrit are 9.2 and 26.3, white count 6.5, platelet count of 78,000, MCV 92.3. INR of 1.05 from yesterday. Sodium 140, potassium 3.9, chloride 100, bicarb 29, anion gap of 11, BUN of 18, creatinine 0.8, glucose of 74, calcium is 8.6, total bilirubin is 0.47, AST 59, ALT 58, alkaline phosphatase is 40, total protein 5.2, albumin of 3.1. His hepatitis C antibody was positive. PCR is currently pending. The patient has a known history hepatitis C for the last 19 years. He has never been treated. IMPRESSION AND PLAN: 1. Melena secondary to a gastric ulcer status post hemoclip. Patient is on Protonix drip which will be stopped today and he will be on Protonix twice daily. He will be discharged home on Protonix twice daily for 3 months and then transition down to once daily for another 3 months. After that he will need Zantac 150 mg p.o. b.i.d. as he has a high risk of recurrent gastric ulcers; this is the 2nd gastric ulcer in the last 5 years. The patient was also counseled to quit using NSAIDs like Goody Powders and BC powders completely. 2. Status post aortic valve replacement with St. Jae for aortic stenosis in 1998, status post repair of aortic dissection involving the ascending thoracic aorta and aortic arch in 2013 at [facility]. He is on full-dose Lovenox 80 mg subcutaneously b.i.d. per the cardiology/primary care team. We have to be very careful as the patient had a recent GI bleed. We have to keep a close eye on his hemoglobin and hematocrit even after discharge. 3. Positive hepatitis C antibody. We will follow the PCR. The patient if he improves his compliance could be candidate for treatment for hepatitis C in the future. This will be based on his overall health is. 4. Tobacco abuse. Patient counseled to quit smoking. 5. The patient is getting 1 unit of blood transfusion today and will recheck a hemoglobin and hematocrit tomorrow. If hemoglobin and hematocrit stay stable we will advance his diet to a soft diet tomorrow morning and we can possible transition to Coumadin if okay with the primary care team. I discussed the plan of care with the patient and the RN. All questions were answered. cc: MD Jose Chopra MD William D. Denney, MD
[2016-10-03] MEDS ORDERED: PROTONIX IV SCH (15:47)
[2016-10-03] MEDS: PROTONIX IV SCH (16:21)
[2016-10-04] MEDS ORDERED: SODIUM CHLORIDE 0.9% 10 ML ONE ×2 (03:02→10:36)
[2016-10-04] MEDS: PROTONIX IV SCH (03:47)
[2016-10-04] MEDS: CARAFATE LIQUID PO SCH ×2 (03:47→10:03)
[2016-10-04 05:00] VITALS: BP 118/72
[2016-10-04] MEDS: NS 1,000 ML IV SCH (05:37)
[2016-10-04 06:58] LABS: MANUAL DIFF NEEDED? NO
[2016-10-04 07:01] LABS: BASO% 0.3 % (0.0-0.8); EOS# 0.23 X1000 (0.0-0.7); EOS% 2.9 % (0.0-10.0); HEMATOCRIT 27.8 % (42.0-52.0); HEMOGLOBIN 9.4 g/dL (14.0-18.0); IMM GRAN# 0.09 X1000 (0.0-0.04); IMM GRAN% 1.1 % (0.0-0.5); LYMPH# 1.57 X1000 (1.2-3.4); MCH 31.1 PG (27-31); MCHC 33.8 g/dL (33-37); MCV 92.1 FL (81-99); MONO# 0.85 X1000 (0.11-0.59); MONO% 10.8 % (1.7-9.3); MPV 11.9 FL (7.4-10.4); NEUT% 64.9 % (42.2-75.2); PLT 141 X1000 (130-400); RBC 3.02 XMIL (4.7-6.1)
[2016-10-04 07:05] LABS: PROTIME 10.5 Seconds (9.2-11.7)
[2016-10-04 07:19] LABS: AGAP 11; ALBUMIN 3.3 g/dL (3.5-5.0); ALKALINE PHOSPHATASE 41 U/L (32-122); BUN 19 mg/dL (8-22); CALCIUM 8.4 mg/dL (8.8-10.2); CHLORIDE 108 mmol/L (98-107); COSMO 289; GOT 55 U/L (10-34); GPT 63 U/L (10-44); POTASSIUM 3.6 mmol/L (3.5-5.1); SODIUM 144 mmol/L (136-145); TCO2 25 mmol/L (25-35); TOTAL PROTEIN 5.7 g/dL (6.3-8.3)
[2016-10-04] MEDS: ICAR-C PO SCH (09:09)
[2016-10-04] MEDS: LOVENOX SUBQ SCH (09:09)
[2016-10-04] MEDS: CENTRUM SILVER PO SCH (09:09)
[2016-10-04] MEDS: COREG PO SCH (09:10)
[2016-10-04] MEDS: COZAAR PO SCH (09:10)
--- NOTE | 2016-10-04 16:58 | PROGRESS NOTE ---
DATE: 10/04/2016 GASTROENTEROLOGY FOLLOWUP: SUBJECTIVE: The patient currently is resting in bed. He is ready to be discharged. He is trying to walk the hallways until the discharge paperwork is done. He denies any nausea, vomiting, vomiting blood or passing blood in the stools. He had 1 bowel movement yesterday which he describes as brown with tiny specks of darkness in there. He has been feeling better. He denies any fevers, rigors, chills. He is eating well. OBJECTIVE: Vital Signs: Temperature 97.4 degrees, pulse of 94, respiratory rate of 25, blood pressure 118/70, saturating 100% in room air. General Appearance: Moderately nourished, lying in bed, in no acute distress. HEENT: Pale conjunctivae. No icterus. Neck: Supple. Abdomen: Soft, nontender, nondistended. Bowel sounds. No guarding or rebound. Extremities: No cyanosis, clubbing, or edema. Neurologic: He is alert, awake, oriented. DIAGNOSTIC DATA: Hemoglobin and hematocrit is 9.4 and 27.8, white count of 7.8 , platelet count of 141,000, MCV of 92.1. Sodium 140, potassium 3.6, chloride 100, bicarb 25, anion gap 11, BUN of 19, creatinine 0.2, glucose of 94, calcium is 8.4, total bilirubin is 0.5, AST 55, ALT 63, alkaline phos 41, total protein 5.7. INR is 1. IMPRESSION AND PLAN: 1. Positive hepatitis C antibody. Follow up the PCR. Patient will call my office in 2 weeks to follow up. 2. Gastric ulcer causing melena status post hemoclipping. Patient will need to be on Protonix twice daily for 3 months and then cut down to once daily for another 3 months and after that he can be on Zantac 150 mg p.o. b.i.d. He will continue Carafate 1 q.6 hours for 6 weeks. The patient will need to be on iron-C 1 capsule b.i.d. for 3 months and multivitamin once daily for 3 months. 3. The patient will follow up with the primary care doctor in a few days after discharge to review the blood counts. 4. Once patient has healed from the gastric ulcer and his cardiac status is stabilized with the primary care team we can evaluate him in the office for possible hepatitis C treatment. In that regard the patient was also counseled to keep a close eye on his liver numbers and quit smoking and avoid use of any NSAIDs and quit alcohol also completely. Above plan of care discussed with the patient and all questions answered. cc: MD Jose Chopra MD MTDD
--- NOTE | 2016-10-04 18:23 | CONSULTATION ---
DATE OF CONSULTATION: 10/04/2016 REASON FOR CONSULT: This patient had anemia with melena. HISTORY OF PRESENT ILLNESS: This patient came in complaining of melena and black tarry stools. He had been on Coumadin for aortic valve replacement in 1998 with aortic dissection repair in 2013. He had a previous history of melenic stools with GI bleeding. This time he has had no black tarry stools for the past several days. GI was consulted on this patient. Dr. Lamar performed an EGD. He found evidence of ulcer in the gastric body measuring about 6-8 mm that he treated with hemoclip successfully and over the last several days the patient's hemoglobin and hematocrit have been stable. REVIEW OF SYSTEMS: Negative unless indicated in HPI. ALLERGIES: No known allergies. SOCIAL HISTORY: Patient denies alcohol, illicit drugs, or tobacco use. PAST SURGICAL HISTORY: He has had a previous aortic aneurysm repair and aortic valve replacement. LABORATORY DATA: WBC 7.84, hemoglobin 9.4, platelet count 141,000. Sodium 144, potassium 3.6, BUN is 19, creatinine is 0.8. PHYSICAL EXAMINATION: Vital Signs: Stable. Constitutional: Patient is in no acute distress. HEENT: Head is normocephalic, atraumatic. Pupils equal, round, symmetric. Cardiovascular: S1, S2 audible to auscultation with no heaves or thrills. Pulmonary: Breath sounds clear to auscultation with normal respiratory effort. Skin: No petechiae. No ecchymosis. Lymphatics: No palpable enlarged lymph nodes. Neurologic: Alert and oriented x3. ASSESSMENT AND PLAN: 1. Anemia which has been stable over the past 48 hours. Status post EGD which revealed gastric ulcers. Status post hemoclip. 2. Aortic valve replacement. On Lovenox with plans to transition to Coumadin. Follow up with primary care as well. We will follow up the patient as an outpatient. Dictated by EDUARDO Degroot for Brian Norwood MD cc: EDUARDO Degroot MD Bharat K. Vakharia, MD
--- NOTE | 2016-10-05 06:15 | DISCHARGE SUMMARY ---
ADMISSION DATE: 09/30/2016 DISCHARGE DATE: 10/04/2016 FINAL DISCHARGE DIAGNOSIS: 1. Gastrointestinal bleed secondary to bleeding gastric ulcer disease. 2. Erosive gastritis. 3. Duodenitis. 4. Sliding hiatal hernia. 5. Hepatitis C. 6. Prosthetic aortic valve. 7. Acute blood loss anemia. 8. Hypertension. 9. Hyperlipidemia. Mr. Eamon Miller is a 61-year-old white gentleman admitted with lower gastrointestinal bleed in the form of melena, upper gastrointestinal bleed in the form of melena, vague abdominal pain. The patient had a headache. He was taking BC powder in moderate amount, which was helping his headache. Melena started 2 to 3 days ago. The patient was feeling weak and came to the emergency room. Evaluated by ER physician. Admitted for further care. The patient had a history of gastrointestinal bleed, prosthetic aortic valve on Coumadin. Patient also has dissecting aortic aneurysm. The patient was admitted to ICU. GI consult obtained with Dr. nayely Lamar. Cardiology consult also obtained with Dr. Becerra and then Dr. Alcantara saw him. The patient had upper GI endoscopy done and also clipping of his bleeding vessels. Patient is doing better. He received a total of 3 units of packed RBCs. He denied any major bleeding. Abdominal pain is better. The patient does not get dizzy when he stands up. The patient tolerated full liquid diet well. We resumed his Coumadin. The patient was started on Lovenox because of high risk of thromboembolism secondary to prosthetic heart valve. Yesterday his platelet count dropped. I requested hematology consult. Recommendation is pending. AM blood work is pending. I am going to follow those results. Overall, the patient is doing better, eager to go home. PHYSICAL EXAMINATION: Vital Signs: Vital signs reviewed. Lungs: Bilateral good air entry present. Cardiovascular: S1 and S2 heard. Abdomen: Soft, globular. Bowel sounds present. TEACHER AIDE: Alert, awake, able to move all 4 limbs. Patient does have metallic heart sound. PLAN: Continue Lovenox and Coumadin unless his platelet count is still dropping or environmental compliance inspector recommends otherwise. Advised him to watch for bleeding. Advised him to avoid anti-inflammatory medications. Smoking cessation. In case of any bleeding, immediately come back to the emergency room. Follow up with me on Saturday. cc: Jose Sanchez MD
[2016-10-05 13:02] LABS: HCV BY PCR SEE COMMENTS; HCV CHARGE YES
== END 2016-10-04 01:00 | disposition home or self-care (01) ==
LOC: ED 13:59 → ICU 16:04 → 3N 10-03 18:56
PROVIDERS: ADMIT Internal Medicine; ATTEND Internal Medicine

== ENCOUNTER 2016-10-06 15:17 | Inpatient (IN) ==
[2016-10-06 16:03] LABS: MANUAL DIFF NEEDED? NO
[2016-10-06 16:15] LABS: BASO% 0.3 % (0.0-0.8); EOS# 0.15 X1000 (0.0-0.7); EOS% 2.4 % (0.0-10.0); HEMATOCRIT 23.9 % (42.0-52.0); HEMOGLOBIN 7.9 g/dL (14.0-18.0); IMM GRAN# 0.05 X1000 (0.0-0.04); IMM GRAN% 0.8 % (0.0-0.5); LYMPH# 1.85 X1000 (1.2-3.4); LYMPH% 29.9 % (20.5-51.1); MCH 31.3 PG (27-31); MCHC 33.1 g/dL (33-37); MCV 94.8 FL (81-99); MONO# 0.72 X1000 (0.11-0.59); MONO% 11.6 % (1.7-9.3); MPV 12.2 FL (7.4-10.4); PLT 145 X1000 (130-400); RBC 2.52 XMIL (4.7-6.1)
[2016-10-06 16:27] LABS: AGAP 14; ALBUMIN 3.5 g/dL (3.5-5.0); ALKALINE PHOSPHATASE 46 U/L (32-122); BUN 15 mg/dL (8-22); CALCIUM 8.6 mg/dL (8.8-10.2); CHLORIDE 106 mmol/L (98-107); COSMO 285; GOT 70 U/L (10-34); GPT 83 U/L (10-44); POTASSIUM 3.6 mmol/L (3.5-5.1); SODIUM 143 mmol/L (136-145); TCO2 23 mmol/L (25-35); TOTAL BILIRUBIN 0.36 mg/dL (0.20-1.00); TOTAL PROTEIN 5.4 g/dL (6.3-8.3)
[2016-10-06] MEDS ORDERED: PROTONIX IV ONE ×2 (17:10→19:41)
[2016-10-06] MEDS ORDERED: SODIUM CHLORIDE 0.9% INJ ONE ×2 (17:10→19:41)
--- NOTE | 2016-10-06 17:20 | PROVIDER DOCUMENTATION ---
This chart was entered by Keysha Kenny Scribe, acting as scribe for Sacha Pereyra MD. HPI-General Adult - General Chief Complaint: Palpitations Stated Complaint: RECHECK Time Seen by Provider: 10/06/16 15:33 Source: patient Allergies/Adverse Reactions: Patient Allergies Allergy/AdvReac Type Severity Reaction Status Date / Time No Known Allergies Allergy Verified 10/06/16 17:03 Home Medications: Home Medication List Medication Instructions Recorded Confirmed Last Taken Type Warfarin [Coumadin] 7.5 mg PO QHS 06/02/14 10/06/16 10/05/16 20:00 History Carvedilol [Coreg] 6.25 mg PO BID tablet 10/02/16 10/06/16 10/06/16 07:00 Rx Enoxaparin 1 mg/kg [Lovenox 1 1 each SUBQ Q12H order 10/02/16 10/06/16 07:00 Rx mg/kg] Iron Carbonyl/Ascorbic Acid 1 each PO BID tablet 10/02/16 10/06/16 10/06/16 08: 00 Rx [Icar-C] Losartan [Cozaar] 100 mg PO DAILY tablet 10/02/16 10/06/16 10/06/16 07:00 Rx Multivitamins/Minerals [Centrum 1 each PO DAILY tablet 10/02/16 10/06/16 07:00 Rx Silver] Sucralfate [Carafate Liquid] 1 gm PO Q6H udc 10/02/16 10/06/16 10/06/16 07:00 Rx Omeprazole [Prilosec] 40 mg PO BID #60 capsule. 10/04/16 10/06/16 10/06/16 07: 00 Rx - History of Present Illness -Gen Adult Nature of Presenting Problems: Pt is a 61 yom who came to the ED with a cc of black tarry stool. Pt reports he was in the hospital since September 30 for a GI bleed. Pt reports he was dizzy this morning. Pt reports since Saturday he has had black tarry stool but it has lighten in color since Saturday. Location of Pain/Injury: reports: abdomen Pain Radiation: reports: no radiation Onset/Duration: reports: 3 days ago Timing: reports: improving Associated Symptoms: reports: diarrhea Similar Symptoms Previously?: Yes Recently seen or treated by another doctor?: Yes Review of Systems - Adult - REVIEW OF SYSTEMS - ADULT Constitutional: denies: chills, fever Eyes: reports: no symptoms reported Ears, Nose, Mouth & Throat: reports: no symptoms reported Cardiovascular: denies: palpitations, poor circulation Respiratory: reports: no symptoms reported Gastrointestinal: reports: diarrhea, other (black stool). denies: abdominal pain, nausea, vomiting Genitourinary: reports: no symptoms reported Musculoskeletal: denies: frequent leg cramps, joint swelling Integumentary: reports: no symptoms reported Neurological: reports: no symptoms reported Psychiatric: reports: no symptoms reported Endocrine: reports: no symptoms reported Hematologic/Lymphatic: reports: no symptoms reported Allergic/Immunologic: reports: no symptoms reported All Other Systems: Reviewed and Negative Past History - Adult - PAST MEDICAL HISTORY-ADULT Review of Records: reports: Nursing Assessment Review Major Childhood Illnesses: reports: denies history Cardiovascular: reports: aortic disease (thoracic aneurysm repair), CAD, heart valve problem (aortic valve replacement) Respiratory: reports: denies history Gastrointestinal: reports: other (hiatal hernia) Obstetrical/Gynecological: reports: denies history Genitourinary: reports: denies history Musculoskeletal: reports: denies history Neurological: reports: CVA Endocrine/Immune: reports: other (metabolic syndrome) Other Conditions: reports: denies history - IMMUNIZATION STATUS Childhood Immunizations: See Nurse Assessment Flu Vaccine: See Nurse Assessment - FAMILY HISTORY Family History: reviewed, not pertinent Physical Exam-General - PHYSICAL EXAM-ADULT Initial Vital Signs Reviewed: Yes - CONSTITUTIONAL General Appearance: appears well, alert, no apparent distress - EYES Eyes: pale conjunctivae - HEAD, EARS, NOSE, MOUTH & THROAT HENMT: normocephalic/atraumatic, moist mucous membranes, normal ENT inspection, TMs normal, pharynx normal - NECK Neck: non-tender, full range of motion, supple, normal inspection - RESPIRATORY Respiratory: chest non-tender, lungs clear, normal breath sounds, no pleuratic chest pain, no respiratory distress, no accessory muscle use - CARDIOVASCULAR Cardiovascular: normal peripheral pulses, regular rate, rhythm, no edema, no gallop, no JVD, no murmur - GASTROINTESTINAL (ABDOMEN) Abdominal Exam: normal bowel sounds, non tender, soft, no organomegaly, no pulsatile mass - LYMPHATIC Lymphatic: no adenopathy - MUSCULOSKELETAL Back Exam: normal inspection, no CVA tenderness, no vertebral tenderness Extremity: normal range of motion, non-tender, normal gait, normal inspection, no pedal edema, no calf tenderness, normal capillary refill, pelvis stable - SKIN Integumentary: normal color, normal turgor, warm/dry - NEUROLOGIC Neurologic: inspector ball points II-XII nml as tested, no motor/sensory deficits - PSYCHIATRIC Psych/Mental Status: normal mood/affect, normal thought content, normal thought process, oriented x 3 Progress - PLAN OF CARE/RESULTS Progress/Plan/Lab Results: Vital Signs - 8 hr 10/06/16 15:23 Temperature 98.2 F Pulse Rate 67 Respiratory Rate 18 Blood Pressure 116/53 O2 Sat by Pulse Oximetry 100 Orders Category Date Time Status CBC WITH ELECTRONIC DIFF [HEME] Stat Lab 10/06/16 15:49 Results COMPREHENSIVE METABOLIC PANEL [CHEM] Stat Lab 10/06/16 15:49 Received TYPE & SCREEN [BBK] Stat Lab 10/06/16 15:49 Received EKG [EKG] Stat Ther 10/06/16 15:20 Ordered Result Diagrams: 10/06/16 15:49 10/06/16 15:49 Departure - Departure Time of Disposition Decision: 17:19 DIAGNOSIS: GI bleed, Anemia Disposition: ADMITTED INPATIENT 09 Certified Medical Emergency: Emergent Condition: Stable Referrals and Follow-Ups: Jose Sanchez MD [Primary Care Provider] - Attestation - Physician/ SIXTO Attestation Patient care was provided by Advanced Practice Provider:: Yes Advanced Practice Provider documentation review:: The Mid-level provider documentation, treatment plan and medical decision making was reviewed by the physician who agrees with all treatment and medical decision making by the MLP. The physician spent face to face time with patient:: Yes Advanced Practice Provider documentation review:: The physician spent face to face time with this patient and agrees with all MLP documentation, treatment, and medical decision making by the MLP. See provider notes for further information. This chart was documented by the indicated scribe, (Keysha Kenny Scribe) and accurately reflects the services I performed and decisions made by , Sacha Pereyra MD, as attested by the provider's signature.
[2016-10-06] MEDS ORDERED: NORCO-5 PO ONE (17:36)
[2016-10-06 17:57] LABS: INR 0.96; PTT 30.3 Seconds (22.0-36.0)
[2016-10-06] MEDS: NS 1,000 ML IV PRN (19:16)
[2016-10-06] MEDS ORDERED: ZOFRAN IV PRN (19:41)
[2016-10-06] MEDS ORDERED: LABETALOL IV PRN (19:46)
--- NOTE | 2016-10-06 21:31 | HISTORY AND PHYSICAL ---
HISTORY OF PRESENT ILLNESS: Mr. Miller who is a 61-year-old white gentleman comes to the emergency room because of generalized severe weakness, palpitation mild shortness of breath. Mr. Miller was recently discharged from the hospital by Dr. Sanchez who is his personal physician after an episode of GI bleeding. During this admission he had EGD done and a large gastric ulcer was found by Dr. Luevano. He was still off Coumadin and was getting Lovenox at home. He has a history of aortic valve replacement done in 1998 in [place], he had also 3 years ago also and he had a bleeding ulcer and he had endoscopy done by Dr. Luevano at that time also. Other details of personal past and family history are noncontributory. He used to smoke however he has quit smoking. He does not drink. ALLERGIES: He is not allergic to any medication. MEDICINES: Involve Coumadin 7.5 mg at bedtime, carvedilol 6.25 mg b.i.d., enoxaparin or Lovenox generic he gets subcu 1 mg/kg body weight subcu q.12 hours, iron with ascorbic acid 1 tablet b.i.d., losartan 100 mg daily, multivitamin daily, sucralfate liquid every 6 hours, and omeprazole, Prilosec 40 mg b.i.d. REVIEW OF SYSTEMS: Other than shortness of breath, palpitation and passing black stools is noncontributory. GI: He has minimal gastric upset. Cardiopulmonary: He has some shortness of breath and palpitation and generalized weakness. He is still passing black stools. He has not stopped passing black stools however he thought he got worse as far as the black stools are concerned. PHYSICAL EXAMINATION: GENERAL: Mr. Miller is alert, oriented. VITAL SIGNS: His temperature is normal, pulse 67 per minute, respiratory rate 18 per minute, blood pressure 116/53. HEENT: Head normocephalic. Pupils PERRLA. Current fundus examination not done. Neck supple. JVP normal. ENT examination unremarkable. There is no evidence of lymphadenopathy, thyroid enlargement, pedal edema, calf tenderness, anemia, cyanosis or clubbing. Pedal pulses well felt. BREASTS EXAM: Normal. CHEST: Normal inspection. LUNGS: Clear on auscultation. He has midline scar from the aortic valve surgery. He has prosthetic valve click, no definite murmur was audible at this time. ABDOMEN: Nondistended, there is slight tenderness in epigastrium, no guarding, rigidity, free fluid masses, organomegaly. Bowel sounds normal. RECTAL: Deferred at this time. SUPERINTENDENT CEMETERY: Higher functions normal. Cranial nerves normal. Motor and sensory system examination unremarkable. Deep tendon reflexes normal. Plantars downgoing. Skull and spine examination normal for age. No cerebellar signs or signs of meningeal irritation. LOCOMOTOR EXAM: Unremarkable. SKIN EXAM: Unremarkable except for pallor of skin from anemia. DATA: His hemoglobin is 7.9, hematocrit 23.9, previous hemoglobin was around 11 g. Since he went home it has dropped significantly. His INR is 0.96, PTT is 30.3, he has been taking Lovenox at home. His AST and ALT are somewhat elevated. CLINICAL IMPRESSION: 1. Recurrent gastrointestinal bleeding with severe anemia. Patient symptomatic from anemia. 2. History aortic valve replacement. Has been on Lovenox therapy. cc: Mayank Yoon MD
[2016-10-07 06:06] LABS: MANUAL DIFF NEEDED? NO
[2016-10-07 06:22] LABS: AGAP 10; BUN 11 mg/dL (8-22); CHLORIDE 108 mmol/L (98-107); COSMO 282; POTASSIUM 3.6 mmol/L (3.5-5.1); SODIUM 142 mmol/L (136-145); TCO2 24 mmol/L (25-35)
[2016-10-07 07:21] LABS: BASO% 0.2 % (0.0-0.8); EOS# 0.14 X1000 (0.0-0.7); EOS% 2.9 % (0.0-10.0); HEMATOCRIT 27.3 % (42.0-52.0); HEMOGLOBIN 9.2 g/dL (14.0-18.0); IMM GRAN# 0.06 X1000 (0.0-0.04); IMM GRAN% 1.2 % (0.0-0.5); LYMPH# 1.23 X1000 (1.2-3.4); LYMPH% 25.1 % (20.5-51.1); MCHC 33.7 g/dL (33-37); MCV 91.9 FL (81-99); MONO% 12.2 % (1.7-9.3); NEUT% 58.4 % (42.2-75.2); PLT 118 X1000 (130-400); RBC 2.97 XMIL (4.7-6.1)
[2016-10-07] MEDS: NS 1,000 ML IV PRN ×2 (08:33→18:15)
[2016-10-07] MEDS: PROTONIX PO SCH ×2 (10:30→20:17)
--- NOTE | 2016-10-07 16:35 | CONSULTATION ---
DATE OF CONSULTATION: 10/07/2016 CONSULTING PHYSICIAN: Dr. Yoon. REASON FOR CONSULT: GI bleed. HISTORY: This is a 61-year-old gentleman well known to Dr. Lamar who was recently discharged from the hospital where he was treated for acute GI bleed and was found to have a gastric ulcer which was treated with Endoclips. He was discharged a few days ago, was readmitted last night when he presented with weakness, lethargy and some lightheadedness. He tells me that since discharge he has had few dark stool. Yesterday he had another stool which was mixed with dark and brown but did not see any blood but he continued to feel weak and lethargic. He felt some palpitation as well. He presented to the emergency room because of those symptoms and was admitted to the hospital. He denied any heartburn or reflux symptoms. Denies any dysphagia or odynophagia. His appetite has been good. He has been eating. He has been taking his proton pump inhibitor twice a day as was prescribed on discharge. He has not taken any NSAID. He had taken Goody powders before his last admission. He denied any chest pain or shortness of breath. Has not had any constipation but did have dark mixed with brown stool. Denies any dysuria, polyuria, hematuria. Has not had hemoptysis. PAST MEDICAL HISTORY: Significant for recently diagnosed gastric ulcer which was treated, gastroesophageal reflux disease, recently diagnosed chronic hepatitis C, history of hypertension, hyperlipidemia and aortic stenosis. SURGERIES: He has had aortic valve replacement in 2001 and aortic dissection repair in 2013. MEDICATION: Prior to his hospitalization he has been on Coumadin 7.5 mg p.o. every night, Carafate liquid 1 g p.o. q.6, Prilosec 40 mg p.o. b.i.d., Centrum Silver, Cozaar , Icar-C, Lovenox subcu q.12 and Coreg 6.25 mg p.o. b.i.d. ALLERGIES: No drug allergies. SOCIAL HISTORY: He is currently living with a common-law. He has not been smoking, does not drink or do illicit drugs. FAMILY HISTORY: Noncontributory. REVIEW OF SYSTEMS: As per HPI as above. PHYSICAL EXAM: General: On examination very pleasant white male, slightly overweight. He is conscious, alert, appears to be in no distress. Vital Signs: Temperature 98.3 degrees, pulse 69 per minute and regular, breathing at 20, blood pressure was 130/79. He weighs about 106 pounds, is 5 feet 4 inches tall. HEENT: Head is atraumatic, normocephalic. Conjunctiva is normal. Sclerae anicteric. Nares are patent. No discharge. Mouth: Buccal mucosa is moist. Throat is normal. Neck: Supple. No lymphadenopathy or thyromegaly. Chest: Moving respirations. Breath sounds audible bilaterally. No rhonchi, crepitus could be heard. Heart: Has got a metallic valve heart sounds which is very loud. I did not hear any murmur. Abdomen: Full, soft, nontender. Could not appreciate a mass, megaly, no ascites noted. Bowel sounds audible. Extremities: No pedal edema, cyanosis, clubbing was noted. SAMPLE EXAMINER: Grossly intact. No sensory or motor deficit. LABS: Reviewed which showed WBC of 4.90, hemoglobin 9.2 after 2 units of transfusion and hematocrit was 27.3, MCV 91.9, Sodium 142, potassium 3.6, chloride 108, bicarb 24, BUN is 11, creatinine 0.8. Transaminases. AST was 70 on admission , ALT was 83 on admission, total bilirubin was 0.36. IMPRESSION: 1. Anemia. 2. History of gastric ulcer treated last week. 3. History of chronic hepatitis C. 4. On anticoagulation for artificial aortic valve. 5. Hypertension, hyperlipidemia and other medical issues. RECOMMENDATION: Patient appears to have had some melenic stool most likely from the old blood that was within his abdomen. He was symptomatic because hemoglobin, hematocrit was low for him. He has responded very well to transfusion and feels good now. I would continue on proton pump inhibitor twice a day and recheck his hemoglobin and hematocrit and keep him on liquid diet and if his hemoglobin, hematocrit drops again and he has any further episodes of melenic stool which may indicate that his ulcers have started to bleed again he may need repeat endoscopy for diagnostic as well as therapeutic purposes. However if hemoglobin and hematocrit remain stable and he continues to feel good and does not have any further melenic stool he may be discharged. Dr. Lamar will be available tomorrow to coal picker the case. cc: MD Jose Chopra MD [facility]
[2016-10-07] MEDS ORDERED: BLISTEX MEDICATED BERRY LIP BALM TOP PRN (23:48)
[2016-10-08] MEDS: NS 1,000 ML IV PRN ×2 (01:30→20:27)
--- NOTE | 2016-10-08 04:51 | PROGRESS NOTE ---
DATE: 10/07/2016 Mr. Miller does not have any active bleeding. This morning, he was seen by Dr. Quinn this morning. His stool is positive for blood. Electrolytes are normal. BUN and creatinine are normal. Hemoglobin is 9.2. Hematocrit is 27.3 after 2 units of transfusion yesterday. I am going to put him on a low dose of Lovenox 40 mg q.12 hours to protect the aortic valve, as he has a prosthetic valve. Overall condition is stable. -1 cc: MD Jose Montanez MD
--- NOTE | 2016-10-08 06:09 | EKG Report ---
Test Performed on : 10/06/2016 3:26:31 PM Test Reason : palpitations Blood Pressure : / mmHG Vent. Rate : 068 BPM Atrial Rate : 071 BPM P-R Int : 000 ms QRS Dur : 094 ms QT Int : 448 ms P-R-T Axes : 000 160 165 degrees QTc Int : 476 ms Atrial fibrillation. Right axis deviation Nonspecific ST and T wave abnormality Abnormal ECG When compared with ECG of 02-OCT-2016 05:51, Atrial fibrillation. has replaced Ectopic atrial rhythm. QRS axis shifted right Non-specific change in ST segment in Lateral leads Inverted T waves have replaced nonspecific T wave abnormality in Lateral leads Unconfirmed Result
--- NOTE | 2016-10-08 07:26 | PROGRESS NOTE ---
DATE: 10/08/2016 SUBJECTIVE: Mr. Miller is doing fair. The patient is admitted with abdominal and chest discomfort. Recently discharged from hospital when he was admitted with gastrointestinal bleed, status post endoscopies and cauterization of the ulcer. The patient received blood transfusion. He was doing better. Hemoglobin and hematocrit was stable. The patient was started on anticoagulation after discussing with international representative and sales account manager. The patient claimed he had some epigastric discomfort and chest pain. He came to the emergency room. Initial hemoglobin was 7.9. Hematocrit was 23.9. The patient did have melanotic stool. The patient received 2 units of packed RBCs. The patient is feeling better. He denied any chest pain, unusual shortness of breath. His anticoagulation is on hold. OBJECTIVE: Vital Signs: Vital signs noted. Lungs: Bibasilar crepitations. CVS: S1 and S2 heard. Abdomen: Soft, globular. Bowel sounds present. Extremities: No cyanosis, clubbing. No acute DVT. PUMP MECHANIC: Alert, awake able to move all 4 limbs. CONSIDERATION: 1. Gastrointestinal bleed most likely due to gastric ulcer. 2. Prosthetic heart valve. ProTime was subtherapeutic. The patient is not on any anticoagulation. I am going to get Cardiology consult to see how to manage his anticoagulation. 3. Hypertension. 4. Hepatitis C. 5. Hyperlipidemia, a.m. lab is pending. Waiting for evaluation. History, physical and GI evaluation reviewed. cc: Jose Sanchez MD
[2016-10-08 07:52] LABS: MANUAL DIFF NEEDED? NO
[2016-10-08 08:02] LABS: BASO% 0.2 % (0.0-0.8); EOS# 0.14 X1000 (0.0-0.7); EOS% 2.9 % (0.0-10.0); HEMOGLOBIN 10.1 g/dL (14.0-18.0); IMM GRAN# 0.04 X1000 (0.0-0.04); IMM GRAN% 0.8 % (0.0-0.5); LYMPH# 1.13 X1000 (1.2-3.4); LYMPH% 23.3 % (20.5-51.1); MCH 31.4 PG (27-31); MCHC 33.7 g/dL (33-37); MCV 93.2 FL (81-99); MONO# 0.61 X1000 (0.11-0.59); MONO% 12.6 % (1.7-9.3); MPV 12.5 FL (7.4-10.4); NEUT% 60.2 % (42.2-75.2); PLT 129 X1000 (130-400); RBC 3.22 XMIL (4.7-6.1)
[2016-10-08] MEDS: CARAFATE LIQUID PO SCH ×3 (10:09→18:18)
[2016-10-08] MEDS: COREG PO SCH ×2 (10:09→22:11)
[2016-10-08] MEDS: PROTONIX PO SCH (10:09)
[2016-10-08] MEDS: COZAAR PO SCH (10:09)
[2016-10-08] MEDS ORDERED: GOLYTELY PO ONE (14:00)
--- NOTE | 2016-10-08 18:02 | PROGRESS NOTE ---
DATE: 10/08/2016 REASON FOR VISIT: Followup requested by Dr. Sanchez. REASON FOR FOLLOWUP: Patient with prosthetic aortic valve having GI bleeding. SUBJECTIVE: Mr. Miller had been discharged from the hospital on 10/04/2016, which was . He represented to the emergency room on 10/06/2016, which was Saturday, because he felt dizzy at home and he was concerned that he was actively bleeding. He had been admitted on 09/30/2016 and had been scoped by Dr. Lamar. His blood thinner had been discontinued and then he was put back on it in the form of Lovenox. Upon presentation to the emergency room on 10/06/2016, his hemoglobin was 7.9. Today it is 10.1. The patient denies having any complaints at this moment. I am seeing him at 4 p.m. on 10/08/2016. OBJECTIVE: Vital signs: Temperature 98.6. Pulse 65. Respirations 16. Blood pressure 140/78. General: He is awake, alert and oriented, in no distress. HEENT: Unremarkable. Chest: Clear to auscultation and percussion. Cardiac: Heart sounds are regular and rhythmic. No gallop. He has a normal closing click of the aortic valve. He has a systolic murmur, 2 to 3/6, over the aortic area. Abdomen: Nontender. Extremities: Show no edema. Neurologic: He moves four extremities. LABORATORY DATA: His white count is normal. IMPRESSION: 1. Patient who has history of aortic valve replacement with a mechanical valve several years ago. 2. Gastrointestinal bleeding. He was found to have a bleeding lesion in the stomach in the form of an ulcer that was treated with a hemoclip by Dr. Lamar on 10/01/2016. He also has a sliding hiatal hernia and duodenitis. 3. Please note that Dr. Heri Alcantara from Cardiology saw him in consultation on 10/01/2016 and he made extensive recommendations and extensive assessment on that particular date. He noted that the patient is a hepatitis C carrier and he also has a history of paroxysmal atrial fibrillation. He has had a previous stroke. He has also had repair of aortic dissection involving the ascending thoracic aorta in March of 2014. RECOMMENDATIONS: At this point in time, the patient has been scheduled for a followup endoscopic procedure with Dr. Lamar tomorrow, 10/09/2016. Based on the results of that study, we could make more appropriate recommendations, however, it may be best to resume warfarin without using any bridging medication simply because of the propensity to bleed more easily if he is fully anticoagulated in a short period of time. At any rate, I will request followup from either Dr. Becerra or Dr. Alcantara who are really the ones who have seen this patient within the past 7 days. Thank you for asking us to participate in his evaluation. Best regards, cc: MD Jose Irwin MD
--- NOTE | 2016-10-08 19:50 | PROGRESS NOTE ---
DATE: 10/08/2016 ATTENDING PHYSICIAN: Dr. Sanchez. SUBJECTIVE: The patient is feeling better. He is sitting in a chair. He denies any nausea, vomiting, abdominal pain. He had 3 bowel movements today which were darker in color but they are improving in color from before. The patient was started 4 days ago, on he was given solid food in the hospital. On Saturday he took a solid meal but after the meal he started having abdominal pain in the periumbilical region and felt weak. He called Dr. Sanchez who recommended him to go to the hospital if his symptoms worsen. In the hospital on 10/04/2016 he came in with an hemoglobin and hematocrit of 7.9 and 23.9. He had some melena at home. Since being in the hospital he got 2 units of blood transfusion. Hemoglobin and hematocrit have responded appropriately. He denies any use of NSAIDs. He has been on Coumadin for aortic valve replacement and history of aortic dissection and repair in 2013. OBJECTIVE: Vital signs: Temperature 97.2 degrees, pulse rate of 66, respiratory rate 15, blood pressure 115/79, saturating 90% on room air. General Appearance: Moderate built, moderately nourished, sitting in chair, in no acute distress. HEENT: Pale conjunctiva. No icterus. Pupils equal, react to light. Neck: Supple. Chest: Decreased breath sounds. Cardiac: Regular rate and rhythm. No murmurs. Abdomen: Soft, nontender, nondistended. Bowel sounds. No rebound. Extremities: No cyanosis, clubbing, edema. Neurologic: Alert, awake, oriented. LABS: Hemoglobin and hematocrit are 10.1 and 30, white count of 4.8, platelet count of 129,000, MCV of 93.2. INR 0.9. Sodium 142, potassium 3.6, chloride 108, bicarb 24, anion gap 10, BUN of 11, creatinine 0.8, glucose of 86, calcium is 8, AST 17, ALT 83, alkaline phosphatase is 46, total protein 5.4, albumin 3.5. IMPRESSION AND PLAN: 1. Gastrointestinal bleeding, presenting with anemia and required 2 units blood transfusion. In this regard, I will schedule the patient for an EGD and colonoscopy tomorrow. 2. Anemia. Continue watch. Type and cross and transfuse to keep hematocrit more than 27%. 3. Hepatitis C with positive PCR. Will check a genotype. The patient will need to follow up as an outpatient once he is cleared from the gastric ulcer and gastrointestinal bleeding evaluate for possible treatment. 4. Aortic valve replacement and history of aortic dissection in the ascending aorta, status repair 2013. The aortic valve replacement was done in 1998. Currently on anticoagulation which has been held. 5. Hyperlipidemia, obesity, hypertension, and metabolic syndrome per the primary care team. 6. Continue on Protonix twice daily and Carafate 1 every 6 hours. We also have him on Iron C b.i.d. 7. Will schedule the patient for an EGD and colonoscopy tomorrow. The risks, benefits, indications, and alternatives have been discussed and all questions answered. cc: MD Jose Chopra MD
[2016-10-08] MEDS: PROTONIX IV SCH (22:11)
[2016-10-08] MEDS: SODIUM CHLORIDE 0.9% INJ SCH (22:11)
[2016-10-08] MEDS: ICAR-C PO SCH (22:11)
[2016-10-09] MEDS: CARAFATE LIQUID PO SCH ×4 (02:56→18:18)
--- NOTE | 2016-10-09 07:29 | PROGRESS NOTE ---
DATE: 10/09/2016 SUBJECTIVE: Mr. Miller is doing fair. No active bleeding per rectum. No high-grade fever or chills. Denied any chest pain. The patient did not drink the GoLYTELY; patient claims it was making him feel weird. No typical chest pain. OBJECTIVE: Vital Signs: Noted, which is satisfactory. Neck: Supple. No JVD. Lungs: Bilateral good air entry present. Cardiovascular: S1 and S2 heard. Abdomen: Soft, globular. Bowel sounds present. RESIDENTIAL DRIVER: Alert, awake. Able to move all 4 limbs. CONSIDERATION: Gastrointestinal bleed. The patient is scheduled to have upper and lower GI endoscopy, prosthetic heart valve. Sole Rougher's recommendation about anticoagulation reviewed. I discussed at length with the patient about anticoagulation, risk of bleeding, thromboembolism and risk of stroke. The patient understood. Once okay with automation and controls instructor I am going to start him on Coumadin. We are going to hold on Lovenox. ASSESSMENT: 1. Hepatitis C. 2. Gastritis and gastric ulcer. 3. Hypertension. PLAN: Overall plan discussed at length with the patient and he is in agreement. cc: Jose Sanchez MD
[2016-10-09] MEDS: ICAR-C PO SCH ×2 (08:11→22:42)
[2016-10-09] MEDS: COREG PO SCH ×2 (08:12→22:42)
[2016-10-09] MEDS: COZAAR PO SCH (08:12)
[2016-10-09] MEDS: NS 1,000 ML IV PRN (11:47)
[2016-10-09] MEDS: PROTONIX IV SCH ×2 (11:47→22:42)
[2016-10-09] MEDS: SODIUM CHLORIDE 0.9% INJ SCH ×2 (11:47→22:42)
[2016-10-09] MEDS ORDERED: DIPRIVAN 1% 500 MG/50 ML BOTTLE ONE (14:44)
[2016-10-09 18:32] LABS: HEPATITIS C GENOTYPE SEE COMMENTS
--- NOTE | 2016-10-09 18:43 | OPERATIVE NOTE ---
PROCEDURE DATE: 10/09/2016 PROCEDURES: Esophagogastroduodenoscopy and flexible sigmoidoscopy. PREOPERATIVE DIAGNOSIS: Rule out continued active bleeding. POSTOPERATIVE DIAGNOSIS: Normal exam; no evidence of bleeding. DESCRIPTION OF PROCEDURE: After informed consent and adequate intravenous sedation, the scope was introduced into the esophagus, stomach, and duodenum. There is no evidence of any fresh or old blood. The clip is still in place in the upper body. There is no sign of any bleeding around here. At this point the scope was withdrawn. Digital rectal exam was performed. The scope was introduced into the descending colon. There is no evidence of any bleeding. The stool that he has is brown and does not appear to contain any significant amount of blood. The scope was withdrawn. The patient tolerated the procedure and transported back to recovery in satisfactory condition. cc: MD Jose Butler MD
[2016-10-09] MEDS ORDERED: COUMADIN PO SCH (21:00)
[2016-10-10] MEDS: CARAFATE LIQUID PO SCH ×3 (04:03→09:42)
[2016-10-10] MEDS: NS 1,000 ML IV PRN (04:03)
[2016-10-10 05:54] LABS: MANUAL DIFF NEEDED? NO
[2016-10-10 05:56] LABS: BASO% 0.2 % (0.0-0.8); EOS# 0.14 X1000 (0.0-0.7); EOS% 3.4 % (0.0-10.0); HEMATOCRIT 28.2 % (42.0-52.0); HEMOGLOBIN 9.3 g/dL (14.0-18.0); LYMPH# 0.98 X1000 (1.2-3.4); MCH 30.6 PG (27-31); MCV 92.8 FL (81-99); MONO# 0.51 X1000 (0.11-0.59); MONO% 12.5 % (1.7-9.3); MPV 11.8 FL (7.4-10.4); NEUT% 59.9 % (42.2-75.2); PLT 134 X1000 (130-400); RBC 3.04 XMIL (4.7-6.1)
[2016-10-10 06:25] LABS: AGAP 13; ALBUMIN 3.2 g/dL (3.5-5.0); ALKALINE PHOSPHATASE 42 U/L (32-122); BUN 7 mg/dL (8-22); CALCIUM 8.1 mg/dL (8.8-10.2); CHLORIDE 109 mmol/L (98-107); COSMO 286; GOT 42 U/L (10-34); GPT 63 U/L (10-44); POTASSIUM 3.5 mmol/L (3.5-5.1); SODIUM 145 mmol/L (136-145); TCO2 23 mmol/L (25-35); TOTAL BILIRUBIN 0.48 mg/dL (0.20-1.00); TOTAL PROTEIN 5.4 g/dL (6.3-8.3)
--- NOTE | 2016-10-10 07:39 | PROGRESS NOTE ---
DATE: 10/10/2016 SUBJECTIVE: Mr. Milelr is feeling better. No bleeding. Tolerated soft food well. No chest pain, palpitations. I started him on Coumadin last night. The patient is very eager to go home. Insisting on going home right now. I am going to talk to clinical biostatistician and 5th grade teacher about discharge planning. Plan for anticoagulation, discuss with the patient and then we will plan discharge today. Encouraged patient to stop smoking, take medicine regularly, GI soft the diet if okay with clinical biostatistician. Follow up with me on Saturday. We will consider blood work. At this time, I am going to discharge him on Coumadin 10 mg, then we will adjust his Coumadin. OBJECTIVE: Vital Signs: Noted. Lungs: Clear. Heart: S1 and S2 heard. Metallic heart sounds. Abdomen: Soft, globular. Bowel sounds present. Extremities: No cyanosis, clubbing. No acute DVT. ACCOUNTING CLERK: Alert, awake. Able to move all 4 limbs. PLAN: Labs and medication noted. Overall discharge plan discussed with the patient. He is in agreement. cc: Jose Sanchez MD
[2016-10-10] MEDS: ICAR-C PO SCH (08:18)
[2016-10-10] MEDS: COREG PO SCH (08:18)
[2016-10-10] MEDS: COZAAR PO SCH (08:18)
[2016-10-10] MEDS ORDERED: XYLOCAINE-MPF 2% ONE (09:14)
[2016-10-10] MEDS: SODIUM CHLORIDE 0.9% INJ SCH (09:42)
[2016-10-10] MEDS: PROTONIX IV SCH (09:42)
[2016-10-10 10:44] VITALS: BP 120/65
[2016-10-10] MEDS ORDERED: LOVENOX SUBQ ONE (11:09)
--- NOTE | 2016-10-18 21:31 | DISCHARGE SUMMARY ---
ADMISSION DATE: 10/06/2016 DISCHARGE DATE: 10/10/2016 FINAL DISCHARGE DIAGNOSES: 1. Recurrent gastrointestinal bleeding. 2. Symptomatic anemia. 3. Anemia secondary to GI blood loss. 4. Prosthetic heart valve. 5. Hypertension. 6. Hyperlipidemia. 7. Hepatitis C. HOSPITAL COURSE: Mr. Miller is a 61-year-old, white gentleman recently discharged from hospital when he was admitted with GI bleed, symptomatic anemia requiring blood transfusion. The patient underwent upper GI endoscopy at that time and found to have gastric ulcer which was bleeding. The patient had a hemostatic clip applied at that time. The patient was doing better. He was discharged home. For prosthetic heart valve, the patient was on Coumadin and Lovenox. The patient was doing better. On the day of admission, the patient had epigastric discomfort, some nausea, melanotic stool, he was feeling weak. The patient came to the emergency room. Initial blood work in the ER: Hemoglobin was 7.9, hematocrit 23.9. The patient was symptomatic, evaluated by ER physician, admitted for further care. The patient received 1 unit of packed RBCs. The patient tolerated blood well. His clinical condition stabilized and improved. GI consult obtained with Dr. Quinn. He evaluated the patient. We monitored his hemoglobin and hematocrit, symptomatic care, IV hydration, anticoagulation was on hold. Dr. Liang did endoscope. The patient underwent both upper and lower GI endoscopy. EGD: There was no active bleeding. The patient underwent sigmoidoscopy and it was negative. Overall patient received maximum benefit of hospitalization. Cardiology consultation obtained because of his prosthetic heart valve. Recommendations were reviewed. The patient was eager to go home. Vital signs were stable. GI soft diet resumed as recommended by social staff worker. The patient was ambulating well. Overall discharge plan and medications explained to the patient. Patient was discharged home. I advised patient not to smoke. Take medicine regularly. Follow up with me next week. Watch for bleeding. Follow up with Cardiology as scheduled. In case of more distress, call us back or go to emergency room. cc: Jose Sanchez MD
== END 2016-10-10 11:36 | disposition home or self-care (01) ==
LOC: ED 15:17 → 4N 21:59
PROVIDERS: ADMIT Internal Medicine; ATTEND Internal Medicine